=== PATIENT | female | born 1970 | race Caucasian/White ===

== ENCOUNTER → 2016-06-23 | Outpatient (CLI) | payer BC ==
[~2016-06-23] MED LIST: CARB15DR2 OP; CHOL100045 PO; GABA-336 PO; HYDR28CR18 TOP; IBUP-1324 PO; LEVO25TA4 PO; MULT-806 PO; PANT40TA27 PO; TERI14TA PO
== END ==
LOC: LAB 13:06
PROVIDERS: ATTEND Internal Medicine
DX: E06.3 Autoimmune thyroiditis (principal)
CPT/HCPCS: 36415; 84439; 84443